=== PATIENT | male | born 1970 | race Caucasian/White ===

== ENCOUNTER 2021-02-05 22:21 | Emergency (ER) | payer OTHER, MEDICAID ==
[2021-02-06] MEDS ORDERED: ROBAXIN 750 MG750 MG GT (00:52)
[2021-02-06] MEDS ORDERED: IBU800 MG PO (00:52)
== END 2021-02-06 00:54 | disposition home or self-care (01) ==
LOC: ER1 22:21
DX: M25.512 Pain in left shoulder (principal); M25.552 Pain in left hip; V49.40XA Driver injured in collision with unspecified motor vehicles in traffic accident, initial encounter; Y92.410 Unspecified street and highway as the place of occurrence of the external cause
CPT/HCPCS: 72100; 73030; 73090; 73502; 99284